=== PATIENT | male | born 1990 ===

== ENCOUNTER 2025-01-03 01:53 | Emergency (ER) | payer MEDICAID ==
[~2025-01-03] VITALS: Ht 170.2 cm; Wt 64.0 kg
[2025-01-03 02:14] VITALS: BP 134/77; PULSE 128; RESP 17; O2SAT 100
[2025-01-03] MEDS: acetaminophen 325mg tablet PO ONE (03:52)
[2025-01-03 03:55] VITALS: TEMP 100.9
== END 2025-01-03 04:46 | disposition left against medical advice (07) ==
LOC: ER 01:54
DX: R50.9 Fever, unspecified (principal); Z53.21 Procedure and treatment not carried out due to patient leaving prior to being seen by health care provider